=== PATIENT | female | born 1990 | race African-American/Black ===

== ENCOUNTER 2021-09-09 08:26 | Emergency (ER) | payer OTHER, SELFPAY ==
[2021-09-09 08:37] VITALS: BP 113/82; PULSE 70; RESP 16; TEMP 36.4; O2SAT 100
--- NOTE | 2021-09-09 08:48 | ED.SKABFB ---
HPI - Skin/Abscess/Foreign Bdy General Chief complaint: Skin/Abscess/Foreign Body Stated complaint: rash Time Seen by Provider: 09/09/21 08:44 History of Present Illness HPI narrative: 30-year-old female presents the emergency room sudden onset of a pruritic rash on her torso, back and upper extremities. Patient states that she applied hydrocortisone cream without resolution of symptoms. Patient denies eating any new foods, exposure to new metals, or starting any new medications. Patient denies fever, sore throat. Related Data Allergies Allergy/AdvReac Type Severity Reaction Status Date / Time No Known Allergies Allergy Verified 09/09/21 08:39 Review of Systems Review of Systems: CONSTITUTIONAL: Denies fever, chills, or sweats. EYES: Denies visual changes, redness, or discharge. ENT: Denies rhinorrhea, congestion, sore throat, or otalgia. CARDIOVASCULAR: Denies chest pain, palpitations, or edema. RESPIRATORY: Denies cough or dyspnea. GASTROINTESTINAL: Denies abdominal pain, nausea, vomiting, or diarrhea. GENITOURINARY: Denies dysuria or hematuria. SKIN: Reports rash or itching. MUSCULOSKELETAL: Denies back pain, joint pain, or myalgia. NEUROLOGIC: Denies headache, numbness, dizziness, or weakness. PSYCHIATRIC: Denies anxiety or depression. PMFSH Past Medical History Medical History Asthma Surgical History Surgical History No significant past surgical history Social History Social History Smoking status: Never smoker Gender identity (if verbalized by the patient): Female Exam Narrative: GENERAL: Well-appearing, well-nourished, no physical limitations, and in no acute distress. HEAD: Normocephalic, atraumatic. EYES: Conjunctivae normal, PERRLA and EOMI. CHEST: Clear to auscultation. No respiratory distress. No wheezes rales or rhonchi. No tenderness. HEART: Regular rate and rhythm. No murmur heard. Normal peripheral pulses. BACK: No CVA tenderness; No cervical/thoracic/lumbar tenderness, step-offs, bony abnormality; FROM EXTREMITIES: Normal range of motion. No edema. No clubbing or cyanosis SKIN: Scattered, erythematous, maculopapular rash to the anterior and posterior torso, upper extremities NEURO: No focal deficits. Alert and oriented x3. MAEW. CN's II-XI intact bilaterally, normal gait PSYCH: Cooperative. Normal mood and affect. Course Vital Signs Vital signs: Vital Signs Temperature 36.4 C 09/09/21 08:37 Pulse Rate 70 09/09/21 08:37 Respiratory Rate 16 09/09/21 08:37 Blood Pressure 113/82 09/09/21 08:37 Pulse Oximetry 100 09/09/21 08:37 Oxygen Delivery Room Air 09/09/21 08:37 Temperature 36.4 C 09/09/21 08:37 Pulse Rate 70 09/09/21 08:37 Respiratory Rate 16 09/09/21 08:37 Blood Pressure 113/82 09/09/21 08:37 Pulse Oximetry 100 09/09/21 08:37 Oxygen Delivery Room Air 09/09/21 08:37 Discharge Plan Discharge Clinical Impression: Rash Patient Disposition: Home, Self-Care Condition: Stable Instructions: Antibiotic Form, Contact Dermatitis (ED) Additional Instructions: Recommend taking Zyrtec and Pepcid during the day to alleviate the itching. May take Benadryl at night. Start the prednisone tomorrow, 09/10 Prescriptions: New prednisone 20 mg tablet 40 mg PO DAILY 5 Days Qty: 10 0RF Follow-up/Referrals: PHYSICIAN,[facility] [employer] [Primary Care Provider] - Time of Disposition: 08:52
== END 2021-09-09 09:19 | disposition home or self-care (01) ==
LOC: ANHED 09:02
PROVIDERS: Emergency Provider Nurse Practitioner Family
DX: R21 Rash and other nonspecific skin eruption (principal); J45.909 Unspecified asthma, uncomplicated
CPT/HCPCS: 96372; 99283; J1100